=== PATIENT | male | born 1970 | race Caucasian/White ===

== ENCOUNTER → 2016-03-23 | Outpatient (CLI) | payer SELFPAY ==
[2016-03-23 09:46] LABS: CH 31.9; CHCM 35.7; HCT 53.3 % (39.0-53.0); HDW 3.06; HGB 18.7 gm/dL (13.0-17.5); MCH 31.5 pg (25.0-35.0); MCHC 35.1 g/dL (31.0-37.0); MCV 89.6 fL (80.0-100.0); Mean Platelet Volume 8.5; RBC 5.95 m/uL (4.30-5.90); RDW 14.1 % (11.5-15.5); WBC 8.1 k/uL (3.8-10.6)
[2016-03-23 10:51] LABS: ALT 42 U/L (21-72); AST 22 U/L (17-59); Alkaline Phosphatase 88 U/L (38-126); Anion Gap 12 mmol/L; Blood Urea Nitrogen 14 mg/dL (9-20); Carbon Dioxide 26 mmol/L (22-30); Chloride 105 mmol/L (98-107); Cholesterol 194 mg/dL (<200); Glucose 85 mg/dL (74-99); HDL Cholesterol 33 mg/dL (40-60); Non-African American GFR(MDRD) >60 (>60 ml/min/1.73 sqM); Potassium 4.5 mmol/L (3.5-5.1); Sodium 143 mmol/L (137-145); Total Bilirubin 0.6 mg/dL (0.2-1.3); Total Protein 7.7 g/dL (6.3-8.2); Triglycerides 333 mg/dL (<150)
[2016-03-23 11:26] LABS: Erythrocyte Sedimentation Rate 2 mm/hr (0-15)
== END | disposition home or self-care (01) ==
LOC: LABWHC1 07:53
PROVIDERS: ATTEND Internal Medicine
DX: S09.90XD Unspecified injury of head, subsequent encounter (principal); E66.8 Other obesity; R56.9 Unspecified convulsions
CPT/HCPCS: 36415; 80053; 80061; 80164; 84443; 85027; 85652

== ENCOUNTER → 2017-06-22 | Outpatient (CLI) | payer SELFPAY ==
[2017-06-22 07:56] LABS: HCT 49.2 % (39.0-53.0); HGB 17.2 gm/dL (13.0-17.5); MCH 30.4 pg (25.0-35.0); MCHC 34.9 g/dL (31.0-37.0); Mean Platelet Volume 6.9; Platelet Count 248 k/uL (150-450); RBC 5.66 m/uL (4.30-5.90); RDW 14.3 % (11.5-15.5); WBC 7.8 k/uL (3.8-10.6)
[2017-06-22 10:36] LABS: ALT 36 U/L (21-72); AST 24 U/L (17-59); Albumin 4.2 g/dL (3.5-5.0); Alkaline Phosphatase 95 U/L (38-126); Anion Gap 17 mmol/L; Blood Urea Nitrogen 14 mg/dL (9-20); Calcium 9.9 mg/dL (8.4-10.2); Carbon Dioxide 22 mmol/L (22-30); Chloride 102 mmol/L (98-107); Cholesterol 196 mg/dL (<200); Glucose 207 mg/dL (74-99); HDL Cholesterol 28 mg/dL (40-60); Sodium 141 mmol/L (137-145); Total Bilirubin 0.5 mg/dL (0.2-1.3); Total Protein 7.3 g/dL (6.3-8.2); Triglycerides 461 mg/dL (<150)
[2017-06-22 11:05] LABS: Prostate Specific Antigen 0.44 ng/mL (0.00-4.00)
[2017-06-22 13:04] LABS: Erythrocyte Sedimentation Rate 2 mm/hr (0-15)
== END | disposition home or self-care (01) ==
LOC: LABWHC1 07:20
PROVIDERS: ATTEND Internal Medicine
DX: E66.9 Obesity, unspecified (principal); R51 Headache; F60.9 Personality disorder, unspecified; R56.9 Unspecified convulsions; R39.12 Poor urinary stream; Z13.6 Encounter for screening for cardiovascular disorders
CPT/HCPCS: 36415; 80053; 80061; 84153; 84443; 85027; 85652

== ENCOUNTER → 2017-10-04 | Outpatient (CLI) | payer SELFPAY ==
[2017-10-04 12:13] LABS: Hemoglobin A1C 4.6 % (4.0-6.0)
== END | disposition home or self-care (01) ==
LOC: LABWHC1 07:11
PROVIDERS: ATTEND Internal Medicine
DX: E11.9 Type 2 diabetes mellitus without complications (principal)
CPT/HCPCS: 36415; 82947; 83036

== ENCOUNTER 2024-03-28 11:36 | Emergency (ER) | payer SELFPAY ==
[2024-03-28 11:51] VITALS: TEMP 98.5
[2024-03-28] MEDS: SODIUM CHLORIDE 0.9% 1,000 ML IV STA (12:37)
[2024-03-28 13:13] LABS: Appearance,Urine Clear (Clear); Bilirubin,Urine Negative (Negative); Blood,Urine Large (Negative); Color,Urine Yellow; Glucose,Urine (UA) 2+ (Negative); Ketones,Urine 1+ (Negative); Leukocyte Esterase,Urine Negative (Negative); Mucus,Urine Few /hpf; Nitrite,Urine Negative (Negative); PH, Urine 5.5 (5.0-8.0); Protein,Urine Trace (Negative); RBC,Urine 39 /hpf (0-5); Specific Gravity,Urine 1.022 (1.001-1.035); Squamous Epithelial Cell,Urine 1 /hpf (0-4); WBC,Urine 3 /hpf (0-5)
[2024-03-28 13:16] LABS: ALT 21 U/L (4-49); African American GFR (CKD) 79 (>60 ml/min/1.73 sqM); Albumin 4.5 g/dL (3.5-5.0); Anion Gap 13 mmol/L; Blood Urea Nitrogen 22 mg/dL (9-20); Calcium 10.3 mg/dL (8.4-10.2); Carbon Dioxide 23 mmol/L (22-30); Chloride 101 mmol/L (98-107); Glucose 136 mg/dL (74-99); Lipase 103 U/L (23-300); Non-African American GFR(CKD) 69 (>60 ml/min/1.73 sqM); Sodium 137 mmol/L (137-145); Total Bilirubin 0.8 mg/dL (0.2-1.3); Total Protein 7.8 g/dL (6.3-8.2)
--- NOTE | 2024-03-28 13:16 | CT ---
EXAMINATION TYPE: CT abdomen pelvis w con CT DLP: 2983 mGycm, Automated exposure control for dose reduction was used. DATE OF EXAM: 03/28/2024 1:05 PM COMPARISON: None CLINICAL INDICATION:Male, 53 years old with history of abdominal pain left; LLQ pain TECHNIQUE: Standard CT of the abdomen and pelvis following the administration of 100 cc of Isovue 3 00 IV contrast material. Coronal and sagittal reformats were performed. FINDINGS: LOWER CHEST: Unremarkable ABDOMEN LIVER: Right hepatic dome 1.5 cm cyst. Possible mild diffuse hepatic steatosis. GALLBLADDER AND BILE DUCTS: Unremarkable. PANCREAS: Unremarkable. SPLEEN: Unremarkable. ADRENAL GLANDS: Unremarkable. KIDNEYS AND URETERS: No right renal calculi. No right-sided hydronephrosis. Mild left hydroureteronep hrosis with an obstructing 5 mm calculus within the proximal left ureter just past the ureteropelvic junction. Additional adjacent 1 mm calculus just proximal to this. Mild left perinephric fat strandin g. Couple of left renal inferior pole cyst with largest measuring up to 6.3 cm. Nonobstructive left r enal 3 mm calculus. The left kidney demonstrates delayed enhancement compared to the right. PELVIS BLADDER: Incompletely distended but grossly unremarkable. REPRODUCTIVE: Unremarkable. ABDOMEN & PELVIS STOMACH AND BOWEL: Stomach and duodenum are unremarkable. No focal bowel wall thickening or surroundi ng inflammatory changes. No evidence of bowel obstruction. PERITONEUM: No evidence of pneumoperitoneum or free fluid. VASCULATURE: No evidence of aortic aneurysm. MUSCULOSKELETAL: No acute osseous abnormalities. Mild disc degeneration changes are present throughou t the thoracolumbar spine. DISH of the lower thoracic spine. LYMPH NODES: No evidence for lymphadenopathy. SOFT TISSUE/ABDOMINAL WALL: Right anterior chest/abdominal wall shunt catheter which enters the perit oneum and terminates within the anterior right upper quadrant. No surrounding fluid collection. IMPRESSION: Mild left hydroureteronephrosis with an obstructing 5 mm calculus within the proximal left ureter jus t past the ureteropelvic junction with adjacent 1 mm calculus. Additional nonobstructive left renal c alculus. [facility], , 03/28/2024 1:13 PM
[2024-03-28 13:28] VITALS: RESP 16
[2024-03-28 13:30] LABS: AST 24 U/L (17-59); Alkaline Phosphatase 78 U/L (38-126); Potassium 4.9 mmol/L (3.5-5.1)
[2024-03-28] MEDS: KETOROLAC 15 MG/ML 1 ML VIAL IVP STA (13:44)
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
[2024-03-28 15:12] LABS: Basophils % (A) 0 %; Eosinophils % (A) 0 %; HCT 48.2 % (39.0-53.0); HGB 16.3 gm/dL (13.0-17.5); Lymphocytes # (A) 1.7 k/uL (1.0-4.8); Lymphocytes % (A) 11 %; MCH 30.3 pg (25.0-35.0); MCHC 33.9 g/dL (31.0-37.0); MCV 89.3 fL (80.0-100.0); Mean Platelet Volume 8.2; Monocytes % (A) 7 %; Neutrophils % (A) 81 %; Platelet Count 250 k/uL (150-450); RBC 5.39 m/uL (4.30-5.90); RDW 15.3 % (11.5-15.5); WBC 14.9 k/uL (3.8-10.6)
[2024-03-28 15:39] VITALS: BP 118/78; PULSE 113
== END 2024-03-28 15:44 | disposition home or self-care (01) ==
LOC: EC 11:36
DX: N13.2 Hydronephrosis with renal and ureteral calculous obstruction (principal)
CPT/HCPCS: 36415; 80053; 83605; 83690; 85025; 81001; 74177; 99284; 96360; 96361; Q9967

== ENCOUNTER → 2024-07-01 | Outpatient (CLI) | payer SELFPAY ==
[2024-07-01 08:34] LABS: African American GFR (CKD) >90 (>60 ml/min/1.73 sqM); Blood Urea Nitrogen 21 mg/dL (9-20); Non-African American GFR(CKD) >90 (>60 ml/min/1.73 sqM)
--- NOTE | 2024-07-01 10:57 | CT ---
EXAMINATION TYPE: CT pelvis w con DATE OF EXAM: 07/01/2024 9:19 AM COMPARISON: 03/28/2024 CLINICAL INDICATION: Male, 54 years old with history of N20.1 CALCULUS OF URETER, calculus of ureter TECHNIQUE:CT scan of the pelvis is performed with Oral Contrast and with IV Contrast, patient injecte d with 80 mL mL of Isovue 300. CT DLP: 2036.9 mGycm, Automated exposure control for dose reduction was used. FINDINGS: ADRENALS: No nodule. No thickening. KIDNEYS/BLADDER: No hydronephrosis. No nephrolithiasis. bilobed cysts lower pole left kidney josé uring 6 cm and 4 cm respectively. The upper poles of the kidneys are not imaged. Urinary bladder jose luis sly unremarkable. BOWEL: Normal appendix. Normal bowel caliber. No inflammation. GENITAL ORGANS: No gross abnormality. LYMPH NODES: No greater than 1cm abdominal or pelvic lymph nodes are appreciated. AORTA: No significant abnormality. OSSEOUS STRUCTURES: No significant abnormality is seen. OTHER: No significant additional abnormality is seen. IMPRESSION: 1. Previously noted obstructing calculus at the left UPJ appears to have passed. There is no evidence of hydronephrosis or calculus within the ureters at this time. [facility], , 07/01/2024 10:55 AM
== END | disposition home or self-care (01) ==
LOC: RADCTMAIN 07:09
PROVIDERS: ATTEND Urology
DX: N20.1 Calculus of ureter (principal)
CPT/HCPCS: 82565; 84520; 72193; 36415; Q9967

== ENCOUNTER → 2024-08-18 | Outpatient (CLI) | payer SELFPAY ==
--- NOTE | 2024-08-18 20:31 | XR ---
EXAMINATION TYPE: XR KUB DATE OF EXAM: 08/18/2024 7:07 PM COMPARISON: CT abdomen/pelvis 03/28/2024. CLINICAL INDICATION: Male, 54 years old with history of CALCULUS OF KIDNEY.; PHH, pain TECHNIQUE: One radiographic view of the abdomen was obtained. FINDINGS: The bowel gas pattern is nonspecific without dilated loops of small or large bowel. . Fecal material and gas are demonstrated throughout the colon and rectum. There is no evidence for organomegaly or pneumoperitoneum. The osseous structures are intact. No ab normal calcifications are present. Possible SILK SCREENER shunt catheter in the right hemiabdomen. IMPRESSION: Nonspecific bowel gas pattern without radiographic evidence for acute process. [facility], , 08/18/2024 8:29 PM
== END ==
LOC: EEVIPCON 18:54 → EC 18:54
PROVIDERS: ATTEND Urology
DX: N20.0 Calculus of kidney (principal)
CPT/HCPCS: 74018